=== PATIENT | male | born 1940 | race Caucasian/White ===

== ENCOUNTER 2019-01-30 12:02 | Inpatient (IN) | payer MEDICARE, BC ==
[~2019-01-30] VITALS: Ht 177.8 cm; Wt 86.3 kg
--- NOTE | 2019-01-30 12:40 | NUR ---
PT AMBULATORY TO & FROM COUGHLIN BR W/OUT INCIDENT; GAIT SLOW, STEADY. VOIDED SPECIMEN PROVIDE: MILKY, CLOUDY URINE. SPECIMEN WILL BE WALKED TO LAB.
--- NOTE | 2019-01-30 12:49 | NUR ---
LABS DRAWN. PT C/O INCREASED URINARY FREQUENCY, "ABOUT EVERY HOUR". PER SPOUSE, PT HAS HAD DECREASED OUTPUT, IRRITATION W/ URINATING. STATES SX HAVE "BEEN GOING ON SINCE THE PROSTATE THING" (JULY 2016). DENIES TAKING MEDS FOR SX. REPORTS DECREASED APPETITE, "QUITE A BIT" OF WATER DAILY.
[2019-01-30 12:56] LABS: BASOPHILS # (AUTO) 0.02 x10^3/uL (0-0.1); BASOPHILS % (AUTO) 0 % (0-1); EOSINOPHILS # (AUTO) 0.03 x10^3/uL (0-0.4); EOSINOPHILS % (AUTO) 1 % (1-7); LYMPHOCYTES # (AUTO) 0.61 x10^3/uL (1-3.4); LYMPHOCYTES % (AUTO) 12 % (22-44); MD NO; MEAN CORPUSCULAR HEMOGLOBIN 32.6 pg (27.5-34.5); MEAN CORPUSCULAR HGB CONC 33.3 g/dL (33.2-36.2); MEAN CORPUSCULAR VOLUME 97.7 fL (81-97); MEAN PLATELET VOLUME 7.5 fL (7.4-10.4); MONOCYTES # (AUTO) 0.48 x10^3/uL (0.2-0.8); MONOCYTES % (AUTO) 9 % (2-9); NEUTROPHILS # (AUTO) 4.01 x10^3/uL (1.8-6.8); NEUTROPHILS % (AUTO) 78 % (42-75); PLATELET COUNT 264 x10^3/uL (130-400); RED BLOOD COUNT 3.26 x10^6/uL (4.38-5.82); RED CELL DISTRIBUTION WIDTH 14.7 % (9.4-14.8)
[2019-01-30 12:59] LABS: CULTURE INDICATED? YES; MICROSCOPIC INDICATED
[2019-01-30 13:07] LABS: ALBUMIN 3.3 g/dL (3.4-5.0); CALCIUM 7.9 mg/dL (8.5-10.1); CHLORIDE 115 mmol/L (98-107)
[2019-01-30 13:13] LABS: ANION GAP 15 mmol/L (5-15)
[2019-01-30 13:14] LABS: ALANINE AMINOTRANSFERASE 19 U/L (12-78); ALKALINE PHOSPHATASE 80 U/L (45-117); BILIRUBIN,TOTAL 0.3 mg/dL (0.2-1.0); TOTAL PROTEIN 7.5 g/dL (6.4-8.2)
--- NOTE | 2019-01-30 13:15 | NUR ---
BLADDER SCANNED X 3: 156ML
[2019-01-30] MEDS ORDERED: CEFTRIAXONE PMX 1GM/50ML 50 ML ONE (13:39)
--- NOTE | 2019-01-30 13:54 | NUR ---
PIV INITIATED PER ADMINISTRATIVE PROCESSOR STUDENT W/ RN ASSIST, BLD CX SET DRAWN FROM SITE. MEDICAL REVIEW COORDINATOR LUKE 2ND BLD CX SET. BLD CX BAND ON PT'S WRIST. DR SANDHU NOW AT BS.
[2019-01-30] MEDS ORDERED: SODIUM CHLORIDE FLUSH 10ML SYR IVF ONE (14:00)
[2019-01-30] MEDS ORDERED: CEFTRIAXONE PMX 1GM/50ML 50 ML IV ONE (14:00)
[2019-01-30] MEDS ORDERED: SODIUM CHLORIDE 0.9% 1,000ML IVBOLUS ONE (14:00)
--- NOTE | 2019-01-30 14:19 | NUR ---
PER EMAR: NS HUNG; ROCEPHIN INFUSING AT 100ML/HR VIA PUMP. CXR DONE. EKG AT BS.
--- NOTE | 2019-01-30 14:56 | NUR ---
PT AMBULATORY TO & FROM COUGHLIN BR W/OUT INCIDENT; GAIT SLOW & STEADY. DR KINGSTON NOW BS FOR EXAM.
[2019-01-30] MEDS ORDERED: ONDANSETRON 2MG/ML, 2ML IVPush PRN (15:00)
[2019-01-30] MEDS ORDERED: PROMETHAZINE 25 MG/ML, 1ML IM PRN (15:00)
[2019-01-30] MEDS ORDERED: HYDROmorphone 2 MG/ML, 1ML IVPush PRN (15:00)
[2019-01-30] MEDS ORDERED: HEPARIN 5,000 UNITS/ML, 1ML SQ SCH (15:00)
[2019-01-30] MEDS ORDERED: OXYcodone IR 5MG TABLET PO PRN (15:00)
[2019-01-30] MEDS ORDERED: SODIUM BICARBONATE 650 MG TABLET PO SCH (15:00)
[2019-01-30] MEDS ORDERED: ONDANSETRON ODT 4 MG PO PRN (15:00)
[2019-01-30] MEDS ORDERED: hydrALAzine 20 MG/ML, 1ML IVPush PRN (15:00)
[2019-01-30] MEDS ORDERED: ACETAMINOPHEN 325 MG TABLET PO PRN (15:00)
--- NOTE | 2019-01-30 15:04 | NUR ---
PT REPORT TO GADIEL COLON FOR ROOM 492-1
[2019-01-30] MEDS ORDERED: HEPARIN 5,000 UNITS/ML, 1ML ONE (15:08)
--- NOTE | 2019-01-30 15:10 | NUR ---
PT REFUSED HEPARIN. INFORMED PT OF REASON FOR MED; PT ADAMENTLY REFUSING.
[2019-01-30 15:11] LABS: O2 FLOW ROOM AIR L/min
--- NOTE | 2019-01-30 15:34 | NUR ---
CRITCAL VALUES RECEIVED FROM PAWAN COLON RN. ABG: pH 7.182, PCO2 15.2152, BICARB 5.6. DR KINGSTON NOTIFIED.
--- NOTE | 2019-01-30 15:35 | NUR ---
PT TRANSPORTED TO FLOOR Addendum: 01/30/19 at 1537 by SHANNONK NS INFUSING UPON TRANSFER TO FLOOR
[2019-01-30 15:54] VITALS: BP 161/55
[2019-01-30] MEDS ORDERED: SODIUM BICARBONATE 8.4% 100 MEQ in DEXTROSE 5% 1,000 ML IV SCH (16:00)
[2019-01-30] MEDS ORDERED: LIDOCAINE 1%, 20ML ONE (16:43)
[2019-01-30] MEDS ORDERED: FENTANYL PF 100 MCG/2ML ONE (16:43)
[2019-01-30] MEDS ORDERED: FLUMAZENIL 0.1 MG/1 ML, 5ML ONE (16:44)
[2019-01-30] MEDS ORDERED: NALOXONE 1 MG/ML, 2ML ONE (16:44)
[2019-01-30] MEDS ORDERED: MIDAZOLAM 1 MG/ML, 5ML ONE ×2 (16:44)
[2019-01-30 17:08] LABS: CHLORIDE,URINE RANDOM 52 mmol/L; POTASSIUM,URINE RANDOM 19 mmol/L; SODIUM,URINE RANDOM 55 mmol/L
[2019-01-30 18:24] LABS: O2 FLOW ROOM AIR L/min
[2019-01-30 21:30] VITALS: BP 133/83
[2019-01-31] VITALS (7 sets, daily range): BP systolic 113–165; BP diastolic 70–91
[2019-01-31] MEDS ORDERED: CYCLOBENZAPRINE 10 MG TABLET PO PRN (01:30)
[2019-01-31] MEDS ORDERED: CYCLOBENZAPRINE 10 MG TABLET ONE (01:35)
[2019-01-31 06:12] LABS: BASOPHILS # (AUTO) 0.01 x10^3/uL (0-0.1); BASOPHILS % (AUTO) 0 % (0-1); EOSINOPHILS % (AUTO) 0 % (1-7); LYMPHOCYTES # (AUTO) 0.38 x10^3/uL (1-3.4); LYMPHOCYTES % (AUTO) 5 % (22-44); MD NO; MEAN CORPUSCULAR HEMOGLOBIN 32.4 pg (27.5-34.5); MEAN CORPUSCULAR HGB CONC 33.8 g/dL (33.2-36.2); MEAN CORPUSCULAR VOLUME 95.8 fL (81-97); MEAN PLATELET VOLUME 7.8 fL (7.4-10.4); MONOCYTES # (AUTO) 0.49 x10^3/uL (0.2-0.8); MONOCYTES % (AUTO) 6 % (2-9); NEUTROPHILS # (AUTO) 7.11 x10^3/uL (1.8-6.8); NEUTROPHILS % (AUTO) 89 % (42-75); PLATELET COUNT 255 x10^3/uL (130-400); RED BLOOD COUNT 3.09 x10^6/uL (4.38-5.82); RED CELL DISTRIBUTION WIDTH 14.1 % (9.4-14.8)
[2019-01-31 06:18] LABS: ANION GAP 16 mmol/L (5-15); CHLORIDE 107 mmol/L (98-107); CREATININE 6.75 mg/dL (0.7-1.3); IRON LEVEL 20 mcg/dL (65-175)
[2019-01-31 06:23] LABS: % IRON SATURATION 12 % (20-55); TOTAL IRON BINDING CAPACITY 164 mcg/dL (250-450)
[2019-01-31] MEDS ORDERED: PHARMACY MAY ADJ FOR RENAL FX MC PRN (08:30)
[2019-01-31] MEDS: CEFTAROLINE 200 MG in SODIUM CHLORIDE 0.9% 100 ML IV SCH ×3 (11:11→23:52)
[2019-01-31] MEDS: IRON SUCROSE COMPLEX 100MG/5ML IV SCH (11:54)
[2019-01-31] MEDS ORDERED: CEFTRIAXONE PMX 1GM/50ML 50 ML IV SCH (14:00)
[2019-02-01 01:21] VITALS: BP 127/77
[2019-02-01 05:52] LABS: BASOPHILS # (AUTO) 0.01 x10^3/uL (0-0.1); BASOPHILS % (AUTO) 0 % (0-1); EOSINOPHILS % (AUTO) 2 % (1-7); LYMPHOCYTES # (AUTO) 0.73 x10^3/uL (1-3.4); LYMPHOCYTES % (AUTO) 9 % (22-44); MD NO; MEAN CORPUSCULAR HEMOGLOBIN 32.7 pg (27.5-34.5); MEAN CORPUSCULAR HGB CONC 33.4 g/dL (33.2-36.2); MEAN CORPUSCULAR VOLUME 97.9 fL (81-97); MONOCYTES # (AUTO) 0.73 x10^3/uL (0.2-0.8); MONOCYTES % (AUTO) 9 % (2-9); NEUTROPHILS # (AUTO) 6.64 x10^3/uL (1.8-6.8); NEUTROPHILS % (AUTO) 80 % (42-75); PLATELET COUNT 240 x10^3/uL (130-400); RED BLOOD COUNT 2.99 x10^6/uL (4.38-5.82); RED CELL DISTRIBUTION WIDTH 14.1 % (9.4-14.8)
[2019-02-01 06:01] LABS: CALCIUM 7.6 mg/dL (8.5-10.1); CHLORIDE 106 mmol/L (98-107)
[2019-02-01 06:04] LABS: ALANINE AMINOTRANSFERASE 19 U/L (12-78); ALBUMIN 2.9 g/dL (3.4-5.0); ALKALINE PHOSPHATASE 74 U/L (45-117); ANION GAP 15 mmol/L (5-15); BILIRUBIN,TOTAL 0.4 mg/dL (0.2-1.0); CREATININE 7.68 mg/dL (0.7-1.3); TOTAL PROTEIN 7.1 g/dL (6.4-8.2)
[2019-02-01 07:33] VITALS: BP 130/71
[2019-02-01] MEDS: IRON SUCROSE COMPLEX 100MG/5ML IV SCH (08:36)
[2019-02-01] MEDS: SEVELAMER CARBONATE 800MG TAB PO SCH ×2 (12:15→17:31)
[2019-02-01] MEDS: CEFTAROLINE 200 MG in SODIUM CHLORIDE 0.9% 100 ML IV SCH (12:15)
[2019-02-01] MEDS: CALCITRIOL 0.25 MCG CAPSULE PO SCH (12:16)
[2019-02-01] MEDS ORDERED: POTASSIUM CHLORIDE 20 MEQ TAB.ER.PRT PO ONE (13:30)
[2019-02-01 14:00] VITALS: BP 146/77
[2019-02-01 20:02] VITALS: BP 118/71
[2019-02-02 01:23] VITALS: BP 114/70
[2019-02-02] MEDS: CEFTAROLINE 200 MG in SODIUM CHLORIDE 0.9% 100 ML IV SCH (01:25)
[2019-02-02] MEDS ORDERED: CEFAZOLIN 2,000 MG in SODIUM CHLORIDE 0.9% 50 ML IV SCH ×2 (08:30→09:00)
[2019-02-02] MEDS ORDERED: PHARMACY MAY ADJ FOR RENAL FX MC PRN (08:30)
[2019-02-02 09:00] VITALS: BP 120/75
[2019-02-02 09:05] VITALS: BP 111/71
[2019-02-02 09:10] VITALS: BP 113/74
[2019-02-02] MEDS: SEVELAMER CARBONATE 800MG TAB PO SCH ×3 (09:19→16:28)
[2019-02-02] MEDS: CALCITRIOL 0.25 MCG CAPSULE PO SCH (09:19)
[2019-02-02] MEDS: IRON SUCROSE COMPLEX 100MG/5ML IV SCH (09:20)
[2019-02-02 13:58] VITALS: BP 123/74
[2019-02-02 18:54] VITALS: BP 115/72
[2019-02-03 01:41] VITALS: BP 124/75
[2019-02-03 06:20] LABS: BASOPHILS # (AUTO) 0.04 x10^3/uL (0-0.1); BASOPHILS % (AUTO) 1 % (0-1); EOSINOPHILS # (AUTO) 0.39 x10^3/uL (0-0.4); EOSINOPHILS % (AUTO) 6 % (1-7); LYMPHOCYTES # (AUTO) 0.68 x10^3/uL (1-3.4); LYMPHOCYTES % (AUTO) 10 % (22-44); MD NO; MEAN CORPUSCULAR HEMOGLOBIN 31.9 pg (27.5-34.5); MEAN CORPUSCULAR HGB CONC 33.3 g/dL (33.2-36.2); MEAN CORPUSCULAR VOLUME 95.8 fL (81-97); MEAN PLATELET VOLUME 7.5 fL (7.4-10.4); MONOCYTES # (AUTO) 0.82 x10^3/uL (0.2-0.8); MONOCYTES % (AUTO) 12 % (2-9); NEUTROPHILS # (AUTO) 5.13 x10^3/uL (1.8-6.8); NEUTROPHILS % (AUTO) 73 % (42-75); PLATELET COUNT 216 x10^3/uL (130-400); RED BLOOD COUNT 2.84 x10^6/uL (4.38-5.82); RED CELL DISTRIBUTION WIDTH 14.4 % (9.4-14.8)
[2019-02-03 06:32] LABS: CHLORIDE 102 mmol/L (98-107)
[2019-02-03 06:37] LABS: ANION GAP 14 mmol/L (5-15); CALCIUM 7.4 mg/dL (8.5-10.1); CREATININE 7.14 mg/dL (0.7-1.3)
[2019-02-03 07:45] VITALS: BP 103/60
[2019-02-03] MEDS: SEVELAMER CARBONATE 800MG TAB PO SCH ×3 (08:00→17:10)
[2019-02-03] MEDS: CALCITRIOL 0.25 MCG CAPSULE PO SCH (12:50)
[2019-02-03] MEDS: IRON SUCROSE COMPLEX 100MG/5ML IV SCH (12:50)
[2019-02-03 14:10] VITALS: BP 116/72
[2019-02-03 18:45] VITALS: BP 100/60
[2019-02-03] MEDS ORDERED: CEFAZOLIN 3,000 MG in SODIUM CHLORIDE 0.9% 50 ML IV SCH (19:00)
[2019-02-04 00:24] VITALS: BP 98/64
[2019-02-04 05:40] LABS: ANION GAP 12 mmol/L (5-15); CALCIUM 7.4 mg/dL (8.5-10.1); CHLORIDE 97 mmol/L (98-107); CREATININE 5.44 mg/dL (0.7-1.3)
[2019-02-04 07:10] VITALS: BP 103/63
[2019-02-04] MEDS ORDERED: POTASSIUM CHLORIDE 20 MEQ TAB.ER.PRT PO ONE (07:30)
[2019-02-04] MEDS: IRON SUCROSE COMPLEX 100MG/5ML IV SCH (08:23)
[2019-02-04] MEDS: SEVELAMER CARBONATE 800MG TAB PO SCH ×3 (08:23→16:20)
[2019-02-04] MEDS: CALCITRIOL 0.25 MCG CAPSULE PO SCH (08:23)
[2019-02-04 13:44] VITALS: BP 114/70
[2019-02-04 19:01] VITALS: BP 109/76
[2019-02-05 01:11] VITALS: BP 106/68
[2019-02-05 06:21] LABS: ANION GAP 9 mmol/L (5-15); CALCIUM 7.6 mg/dL (8.5-10.1); CHLORIDE 98 mmol/L (98-107); CREATININE 6.58 mg/dL (0.7-1.3)
[2019-02-05 07:25] VITALS: BP 112/65
[2019-02-05] MEDS: SEVELAMER CARBONATE 800MG TAB PO SCH ×3 (09:59→17:25)
[2019-02-05] MEDS: CALCITRIOL 0.25 MCG CAPSULE PO SCH (09:59)
[2019-02-05 12:43] VITALS: BP 119/77
[2019-02-05 19:18] VITALS: BP 104/70
[2019-02-06 01:27] VITALS: BP 115/69
[2019-02-06 05:39] LABS: BASOPHILS # (AUTO) 0.05 x10^3/uL (0-0.1); BASOPHILS % (AUTO) 1 % (0-1); EOSINOPHILS # (AUTO) 0.67 x10^3/uL (0-0.4); EOSINOPHILS % (AUTO) 7 % (1-7); LYMPHOCYTES # (AUTO) 1.38 x10^3/uL (1-3.4); LYMPHOCYTES % (AUTO) 14 % (22-44); MD NO; MEAN CORPUSCULAR HEMOGLOBIN 32.7 pg (27.5-34.5); MEAN CORPUSCULAR HGB CONC 33.1 g/dL (33.2-36.2); MEAN CORPUSCULAR VOLUME 98.7 fL (81-97); MEAN PLATELET VOLUME 7.8 fL (7.4-10.4); MONOCYTES # (AUTO) 0.76 x10^3/uL (0.2-0.8); MONOCYTES % (AUTO) 8 % (2-9); NEUTROPHILS # (AUTO) 6.84 x10^3/uL (1.8-6.8); NEUTROPHILS % (AUTO) 71 % (42-75); PLATELET COUNT 254 x10^3/uL (130-400); RED BLOOD COUNT 2.67 x10^6/uL (4.38-5.82)
[2019-02-06 05:44] LABS: CHLORIDE 99 mmol/L (98-107)
[2019-02-06 05:52] LABS: ALANINE AMINOTRANSFERASE 8 U/L (12-78); ALBUMIN 2.5 g/dL (3.4-5.0); ALKALINE PHOSPHATASE 72 U/L (45-117); ANION GAP 12 mmol/L (5-15); BILIRUBIN,TOTAL 0.4 mg/dL (0.2-1.0); CALCIUM 7.7 mg/dL (8.5-10.1); CREATININE 7.55 mg/dL (0.7-1.3); TOTAL PROTEIN 6.1 g/dL (6.4-8.2)
[2019-02-06 07:12] VITALS: BP 116/66
[2019-02-06] MEDS: CALCITRIOL 0.25 MCG CAPSULE PO SCH (08:51)
[2019-02-06] MEDS: SEVELAMER CARBONATE 800MG TAB PO SCH ×3 (08:51→18:03)
[2019-02-06 13:35] VITALS: BP 113/74
[2019-02-06] MEDS ORDERED: CEFAZOLIN 2,000 MG in SODIUM CHLORIDE 0.9% 50 ML IV SCH (19:00)
[2019-02-06 19:08] VITALS: BP 113/68
[2019-02-07 01:09] VITALS: BP 124/74
[2019-02-07 05:34] LABS: BASOPHILS # (AUTO) 0.06 x10^3/uL (0-0.1); BASOPHILS % (AUTO) 1 % (0-1); EOSINOPHILS # (AUTO) 0.56 x10^3/uL (0-0.4); EOSINOPHILS % (AUTO) 6 % (1-7); LYMPHOCYTES # (AUTO) 1.45 x10^3/uL (1-3.4); LYMPHOCYTES % (AUTO) 14 % (22-44); MD NO; MEAN CORPUSCULAR HEMOGLOBIN 32.9 pg (27.5-34.5); MEAN CORPUSCULAR HGB CONC 33.4 g/dL (33.2-36.2); MEAN CORPUSCULAR VOLUME 98.4 fL (81-97); MEAN PLATELET VOLUME 7.9 fL (7.4-10.4); MONOCYTES # (AUTO) 0.82 x10^3/uL (0.2-0.8); MONOCYTES % (AUTO) 8 % (2-9); NEUTROPHILS % (AUTO) 72 % (42-75); PLATELET COUNT 249 x10^3/uL (130-400); RED BLOOD COUNT 2.68 x10^6/uL (4.38-5.82); RED CELL DISTRIBUTION WIDTH 13.6 % (9.4-14.8)
[2019-02-07 05:44] LABS: ALBUMIN 2.5 g/dL (3.4-5.0); ANION GAP 13 mmol/L (5-15); CALCIUM 7.6 mg/dL (8.5-10.1); CHLORIDE 101 mmol/L (98-107); CREATININE 8.13 mg/dL (0.7-1.3)
[2019-02-07 07:25] VITALS: BP 119/76
[2019-02-07] MEDS: SEVELAMER CARBONATE 800MG TAB PO SCH ×2 (08:00→12:37)
[2019-02-07] MEDS ORDERED: LIDOCAINE 1%, 20ML ONE (08:09)
[2019-02-07] MEDS ORDERED: FENTANYL PF 100 MCG/2ML ONE (08:17)
[2019-02-07] MEDS ORDERED: NALOXONE 1 MG/ML, 2ML ONE (08:17)
[2019-02-07] MEDS ORDERED: MIDAZOLAM 1 MG/ML, 5ML ONE (08:17)
[2019-02-07] MEDS ORDERED: FLUMAZENIL 0.1 MG/1 ML, 5ML ONE (08:17)
[2019-02-07 08:49] LABS: INTERNATIONAL NORMALIZED RATIO 1.03 (0.93-1.1); PROTHROMBIN TIME 10.8 Seconds (9.6-11.5)
[2019-02-07] MEDS: CALCITRIOL 0.25 MCG CAPSULE PO SCH (12:37)
[2019-02-07 12:50] VITALS: BP 127/71
[2019-02-07] MEDS ORDERED: CEFA1VIA2 IV (15:09)
[2019-02-07] MEDS ORDERED: SEVE800T8 PO (15:09)
[2019-02-07] MEDS ORDERED: CYCL-259 PO (15:09)
[2019-02-07] MEDS ORDERED: CALC0.25 PO (15:09)
== END 2019-02-07 18:02 | disposition home or self-care (01) | DRG 871 ==
LOC: ED 13:33 → EDIP 14:10 → 4EST 15:40
PROVIDERS: ADMIT Hospitalist; ATTEND Internal Medicine
PROC: 0JH63XZ Insertion of Tunneled Vascular Access Device into Chest Subcutaneous Tissue and Fascia, Percutaneous Approach (ICD-10-PCS; principal; 2019-01-30)
PROC: 02HV33Z Insertion of Infusion Device into Superior Vena Cava, Percutaneous Approach (ICD-10-PCS; 2019-01-30)
PROC: B5181ZA Fluoroscopy of Superior Vena Cava using Low Osmolar Contrast, Guidance (ICD-10-PCS; 2019-01-30)
PROC: B548ZZA Ultrasonography of Superior Vena Cava, Guidance (ICD-10-PCS; 2019-01-30)
PROC: 5A1D70Z Performance of Urinary Filtration, Intermittent, Less than 6 Hours Per Day (ICD-10-PCS; 2019-01-30)
PROC: 02PYX3Z Removal of Infusion Device from Great Vessel, External Approach (ICD-10-PCS; 2019-01-31)
PROC: 5A1D70Z Performance of Urinary Filtration, Intermittent, Less than 6 Hours Per Day (ICD-10-PCS; 2019-02-01)
PROC: 5A1D70Z Performance of Urinary Filtration, Intermittent, Less than 6 Hours Per Day (ICD-10-PCS; 2019-02-03)
PROC: 0JH63XZ Insertion of Tunneled Vascular Access Device into Chest Subcutaneous Tissue and Fascia, Percutaneous Approach (ICD-10-PCS; 2019-02-07)
PROC: 02HV33Z Insertion of Infusion Device into Superior Vena Cava, Percutaneous Approach (ICD-10-PCS; 2019-02-07)
PROC: B5181ZA Fluoroscopy of Superior Vena Cava using Low Osmolar Contrast, Guidance (ICD-10-PCS; 2019-02-07)
PROC: B548ZZA Ultrasonography of Superior Vena Cava, Guidance (ICD-10-PCS; 2019-02-07)
DX: A41.01 Sepsis due to Methicillin susceptible Staphylococcus aureus (principal); N18.6 End stage renal disease; N17.9 Acute kidney failure, unspecified; N13.8 Other obstructive and reflux uropathy; N39.0 Urinary tract infection, site not specified; D63.1 Anemia in chronic kidney disease; Z99.2 Dependence on renal dialysis; E83.51 Hypocalcemia; Z88.8 Allergy status to other drugs, medicaments and biological substances; D50.9 Iron deficiency anemia, unspecified; G25.81 Restless legs syndrome; M19.011 Primary osteoarthritis, right shoulder; N40.1 Benign prostatic hyperplasia with lower urinary tract symptoms; Z51.5 Encounter for palliative care; Z66 Do not resuscitate; Z87.442 Personal history of urinary calculi; Z90.79 Acquired absence of other genital organ(s); Z91.14 Patient's other noncompliance with medication regimen
CPT/HCPCS: 36415; 36558; 36565; 36589; 36600; 71045; 76770; 76937; 77001; 80048; 80053; 80069; 81001; 82043; 82436; 82570; 82728; 82803; 83540; 83550; 83735; 84100; 84133; 84300; 85025; 85610; 86480; 86705; 86706; 86803; 87040; 87070; 87077; 87086; 87147; 87186; 87340; 90935; 93005; 93306; 96365; 99156; 99157; C1894; G0378; J0690; J0696; J0712; J1756; J2250; J3010; J7070; C1750; J1642; J2310; J7030